=== PATIENT | male | born 1975 | race Hispanic/Latino ===

== ENCOUNTER 2018-08-18 07:28 | Day surgery (SDC) | payer OTHER ==
[2018-08-15 12:24] VITALS: BP 138/81
[2018-08-15 12:28] LABS: BASOPHILS % (AUTO) 0.4 % (0.0-5.0); EOSINOPHILS % (AUTO) 4.7 % (0.0-8.0); HEMATOCRIT 47.3 % (42-54); LYMPHOCYTES % (AUTO) 41.9 % (21.0-51.0); MEAN CORPUSCULAR HEMOGLOBIN 31.2 pg (27.0-33.0); MEAN CORPUSCULAR HGB CONC 33.5 g/dL (32.0-36.0); MEAN CORPUSCULAR VOLUME 93.1 fL (79-99); MONOCYTES % (AUTO) 9.1 % (3.0-13.0); NEUTROPHILS % (AUTO) 43.9 % (40.0-77.0); NUCLEATED RED BLOOD CELLS 0.1 % (0.0-0.19); PLATELET COUNT (AUTO) 221 K/uL (130-400); RED BLOOD CELL COUNT(AUTO) 5.08 MIL/uL (4.50-6.20); RED CELL DISTRIBUTION WIDTH 13.9 % (11.0-15.5); WHITE BLOOD COUNT (AUTO) 7.4 K/uL (4.8-10.8)
[2018-08-15 12:37] LABS: CREATININE 0.8 mg/dL (0.5-1.5); POTASSIUM 4.4 mmol/L (3.5-5.1)
[2018-08-15 12:42] LABS: INR 1.02 (0.85-1.15); PROTHROMBIN TIME 10.7 SEC (9.6-11.6)
[~2018-08-18] VITALS: Ht 175.3 cm; Wt 83.4 kg
[2018-08-18] VITALS (14 sets, daily range): BP systolic 108–131; BP diastolic 63–87
[~2018-08-18 07:28] MED LIST: CEFAZOLIN SODIUM 1 GM VIAL IVP SCH
[2018-08-18] MEDS ORDERED: LACTATED RINGERS 1000ML 1,000 ML IV ONE (07:52)
[2018-08-18] MEDS ORDERED: LIDOCAINE HCL MPF 1% 5ML VIAL ONE (07:56)
[2018-08-18] MEDS ORDERED: BACITRACIN 28.4 GM OINT TP ONE (07:56)
[2018-08-18] MEDS ORDERED: BUPIVACAINE/PF 0.25% 30ML VIAL IJ ONE (07:56)
[2018-08-18] MEDS ORDERED: FENTANYL CITRATE PF 50 MCG/1 ML 2ML VIAL ONE (08:01)
[2018-08-18] MEDS ORDERED: LIDOCAINE PF 2% 5ML ABBOJECT ONE (08:01)
[2018-08-18] MEDS ORDERED: PROPOFOL 10 MG/ML 20ML VIAL IV ONE (08:01)
[2018-08-18] MEDS: CEFAZOLIN SODIUM 1 GM VIAL ONE ×2 (08:07→08:45)
[2018-08-18] MEDS ORDERED: BACITRACIN 1 EACH PACKET TP ONE (11:13)
== END 2018-08-18 11:35 | disposition home or self-care (01) ==
LOC: DAH 07:28
PROVIDERS: ATTEND Urology
DX: N47.1 Phimosis (principal); Z82.49 Family history of ischemic heart disease and other diseases of the circulatory system; Z83.3 Family history of diabetes mellitus; Z79.899 Other long term (current) drug therapy; Z98.890 Other specified postprocedural states
CPT/HCPCS: 36415; 54161; 80048; 85025; 85610; 88304; A4218; A4600; A4606; J0690; J2001; J2704; J3010; J3490 ×2; J7120